=== PATIENT | female | born 2000 | race Caucasian/White ===

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

== ENCOUNTER 2021-06-01 07:06 | Emergency (ER) | payer BC ==
[~2021-06-01] VITALS: Ht 167.6 cm; Wt 120.2 kg
[2021-06-01] MEDS ORDERED: NEXPLANON68 M2 SQ (08:00)
[2021-06-01] MEDS ORDERED: ABILIFY10 MG PO (08:01)
[2021-06-01 10:14] LABS: BASO % 0.6 % (0.0-1.0); EOS % 0.6 % (1.0-4.0); HEMATOCRIT 38.1 % (37.0-47.0); LYMPH # 1.5 10*3/uL (1.3-4.4); LYMPH % 46.1 % (27.0-41.0); MEAN CELL VOLUME 80.2 fl (81.0-99.0); MEAN CORPUSCULAR HGB 26.3 pg (27.0-31.0); MEAN CORPUSCULAR HGB CONC 32.8 g/dl (33.0-37.0); MONO # 0.3 10*3/uL (0.1-1.0); NEUT # 1.4 10*3/uL (2.3-7.9); NEUT % 42.7 % (47.0-73.0); PLATELET COUNT AUTOMATED 211 10*3/uL (130-400); RED BLOOD COUNT 4.75 10*6/uL (4.10-5.10); RED CELL DISTRI WIDTH 13.7 % (0-14.5); WHITE BLOOD COUNT 3.2 10*3/uL (4.8-10.8)
[2021-06-01 10:32] LABS: ALBUMIN 3.4 gm/dl (3.1-4.5); ALKALINE PHOSPHATASE 60 U/L (45-117); BUN 7 mg/dl (7-24); CHLORIDE 110 mmol/L (98-107); CREATININE 0.84 mg/dL (0.55-1.02); LIPASE 53 U/L (73-393); POTASSIUM 3.7 mmol/L (3.5-5.1); SGOT/AST 16 IU/L (3-35); SGPT/ALT 22 U/L (12-78); SODIUM 141 mmol/L (136-145); TOTAL PROTEIN 7.2 gm/dL (6.4-8.2)
[2021-06-01 10:40] LABS: BETA-HCG, QUANT < 1.0 mIU/mL (1-3)
== END 2021-06-01 14:19 | disposition home or self-care (01) ==
LOC: ED 07:06
PROVIDERS: Emergency Medicine
DX: U07.1 COVID-19 (principal); J12.82 Pneumonia due to coronavirus disease 2019; Z79.899 Other long term (current) drug therapy; Z96.22 Myringotomy tube(s) status

== ENCOUNTER 2022-02-28 08:45 | Emergency (ER) | payer SELFPAY ==
[~2022-02-28] VITALS: Ht 167.6 cm; Wt 123.4 kg
[~2022-02-28 08:45] MED LIST changes: +ABILIFY10 MG PO; +NEXPLANON68 M2 SQ
[2022-02-28 11:15] LABS: BASO # 0.1 10*3/uL (0.0-0.1); BASO % 0.6 % (0.0-1.0); EOS # 0.1 10*3/uL (0.0-0.4); EOS % 1.3 % (1.0-4.0); HEMATOCRIT 39.2 % (37.0-47.0); LYMPH # 2.1 10*3/uL (1.3-4.4); LYMPH % 24.8 % (27.0-41.0); MEAN CORPUSCULAR HGB 26.6 pg (27.0-31.0); MEAN CORPUSCULAR HGB CONC 32.4 g/dl (33.0-37.0); MEAN PLATELET VOLUME 11.1 fl (9.6-12.3); MONO # 0.5 10*3/uL (0.1-1.0); MONO % 6.2 % (3.0-9.0); NEUT # 5.5 10*3/uL (2.3-7.9); NEUT % 66.7 % (47.0-73.0); PLATELET COUNT AUTOMATED 257 10*3/uL (130-400); RED BLOOD COUNT 4.78 10*6/uL (4.10-5.10); RED CELL DISTRI WIDTH 13.8 % (0-14.5); WHITE BLOOD COUNT 8.3 10*3/uL (4.8-10.8)
[2022-02-28 11:23] LABS: BILIRUBIN Negative (Negative); BLOOD Negative (Negative); CLARITY Clear (Clear); COLOR Yellow (Yellow); GLUCOSE Negative (Negative); KETONE Negative (Negative); LEUKO ESTERASE Negative (Negative); NITRITE Negative (Negative); UROBILINOGEN 0.2 E.U./dl (0.0-1.0)
[2022-02-28 11:33] LABS: ALKALINE PHOSPHATASE 65 U/L (45-117); BUN 9 mg/dl (7-24); CHLORIDE 110 mmol/L (98-107); CREATININE 0.96 mg/dL (0.55-1.02); LIPASE 72 U/L (73-393); POTASSIUM 4.1 mmol/L (3.5-5.1); SGOT/AST 13 IU/L (3-35); SGPT/ALT 26 U/L (12-78); SODIUM 139 mmol/L (136-145); TOTAL PROTEIN 7.5 gm/dL (6.4-8.2)
[2022-02-28 11:36] LABS: B-hCG (QUALITATIVE) NEGATIVE (NEGATIVE)
== END 2022-02-28 13:12 | disposition home or self-care (01) ==
LOC: ED 08:45
PROVIDERS: Emergency Medicine
DX: K80.80 Other cholelithiasis without obstruction (principal); K80.50 Calculus of bile duct without cholangitis or cholecystitis without obstruction; Z79.899 Other long term (current) drug therapy

== ENCOUNTER 2022-03-28 15:27 | Emergency (ER) | payer SELFPAY ==
[~2022-03-28] VITALS: Ht 167.6 cm; Wt 131.5 kg
[2022-03-28] MEDS ORDERED: IBU600 M1 PO (17:38)
[2022-03-28] MEDS ORDERED: LIDODERM1 EACH TD (17:38)
[2022-03-28] MEDS ORDERED: TYLENOL EXTRA500 MG PO (17:38)
== END 2022-03-28 18:00 | disposition home or self-care (01) ==
LOC: ED 15:27
DX: S50.12XA Contusion of left forearm, initial encounter (principal); Z79.899 Other long term (current) drug therapy; W18.39XA Other fall on same level, initial encounter; Y93.89 Activity, other specified; Y92.89 Other specified places as the place of occurrence of the external cause; Y99.8 Other external cause status

== ENCOUNTER 2022-07-02 15:59 | Emergency (ER) | payer OTHER ==
[~2022-07-02 15:59] MED LIST changes: +IBU600 M1 PO; +LIDODERM1 EACH TD; +TYLENOL EXTRA500 MG PO
[2022-07-02] MEDS ORDERED: PROVENTIL HFA6.7 GM PO (16:17)
== END 2022-07-02 16:40 | disposition home or self-care (01) ==
LOC: ED 15:59
DX: U07.1 COVID-19 (principal); Z98.890 Other specified postprocedural states

== ENCOUNTER → 2022-07-19 | Outpatient (CLI) | payer OTHER ==
[~2022-07-19] MED LIST changes: +PROVENTIL HFA6.7 GM PO
== END | disposition home or self-care (01) ==
LOC: LAB 13:43
PROVIDERS: ATTEND Surgery
DX: Z01.812 Encounter for preprocedural laboratory examination (principal)

== ENCOUNTER 2022-08-11 02:03 | Emergency (ER) | payer OTHER ==
[2022-08-11 02:38] LABS: BASO % 0.5 % (0.0-1.0); EOS # 0.2 10*3/uL (0.0-0.4); EOS % 1.9 % (1.0-4.0); HEMATOCRIT 37.4 % (37.0-47.0); LYMPH # 2.8 10*3/uL (1.3-4.4); LYMPH % 34.7 % (27.0-41.0); MEAN CELL VOLUME 83.5 fl (81.0-99.0); MEAN CORPUSCULAR HGB 27.2 pg (27.0-31.0); MEAN CORPUSCULAR HGB CONC 32.6 g/dl (33.0-37.0); MEAN PLATELET VOLUME 11.5 fl (9.6-12.3); MONO # 0.6 10*3/uL (0.1-1.0); MONO % 7.3 % (3.0-9.0); NEUT # 4.5 10*3/uL (2.3-7.9); NEUT % 55.4 % (47.0-73.0); PLATELET COUNT AUTOMATED 207 10*3/uL (130-400); RED BLOOD COUNT 4.48 10*6/uL (4.10-5.10); RED CELL DISTRI WIDTH 14.2 % (0-14.5); WHITE BLOOD COUNT 8.1 10*3/uL (4.8-10.8)
[2022-08-11 02:54] LABS: ALKALINE PHOSPHATASE 54 U/L (46-116); BUN 10 mg/dl (9-23); CHLORIDE 109 mmol/L (98-107); LIPASE 33 U/L (12-53); POTASSIUM 3.8 mmol/L (3.4-5.1); SGPT/ALT 19 U/L (10-49); TOTAL PROTEIN 6.5 gm/dL (6.0-8.0)
[2022-08-11] MEDS ORDERED: METRONIDAZOLE500 M1 PO (03:49)
[2022-08-11] MEDS ORDERED: CIPRO500 MG PO (03:49)
== END 2022-08-11 04:15 | disposition home or self-care (01) ==
LOC: ED 02:03
PROVIDERS: Internal Medicine
DX: K80.10 Calculus of gallbladder with chronic cholecystitis without obstruction (principal); Z79.899 Other long term (current) drug therapy

== ENCOUNTER 2022-08-14 16:52 | Emergency (ER) | payer OTHER ==
[~2022-08-14] VITALS: Ht 167.6 cm; Wt 127.0 kg
[~2022-08-14 16:52] MED LIST changes: +CIPRO500 MG PO; +METRONIDAZOLE500 M1 PO
[2022-08-14] MEDS ORDERED: ATARAX,VISTARIL10 MG PO (17:31)
[2022-08-14 17:35] LABS: BASO % 0.5 % (0.0-1.0); EOS # 0.1 10*3/uL (0.0-0.4); EOS % 1.8 % (1.0-4.0); HEMATOCRIT 38.8 % (37.0-47.0); LYMPH # 1.8 10*3/uL (1.3-4.4); LYMPH % 29.6 % (27.0-41.0); MEAN CELL VOLUME 81.7 fl (81.0-99.0); MEAN CORPUSCULAR HGB 26.9 pg (27.0-31.0); MONO # 0.7 10*3/uL (0.1-1.0); MONO % 11.7 % (3.0-9.0); NEUT # 3.4 10*3/uL (2.3-7.9); NEUT % 56.1 % (47.0-73.0); PLATELET COUNT AUTOMATED 202 10*3/uL (130-400); RED BLOOD COUNT 4.75 10*6/uL (4.10-5.10); RED CELL DISTRI WIDTH 14.1 % (0-14.5); WHITE BLOOD COUNT 6.1 10*3/uL (4.8-10.8)
[2022-08-14 17:50] LABS: ALKALINE PHOSPHATASE 58 U/L (46-116); BUN 8 mg/dl (9-23); CHLORIDE 106 mmol/L (98-107); LIPASE 28 U/L (12-53); POTASSIUM 3.9 mmol/L (3.4-5.1); SGPT/ALT 49 U/L (10-49); TOTAL PROTEIN 7.1 gm/dL (6.0-8.0)
[2022-08-14] MEDS ORDERED: COMPAZINE10 M1 PO (18:02)
[2022-08-14] MEDS ORDERED: Percocet 325 MG1 TAB PO (18:02)
== END 2022-08-14 18:07 | disposition home or self-care (01) ==
LOC: ED 16:52
PROVIDERS: Emergency Medicine
DX: K80.50 Calculus of bile duct without cholangitis or cholecystitis without obstruction (principal); M25.511 Pain in right shoulder; Z98.890 Other specified postprocedural states

== ENCOUNTER → 2022-08-25 | Day surgery (SDC) | payer OTHER ==
[2022-08-23 13:15] VITALS: BP 150/84
[~2022-08-25] VITALS: Ht 167.6 cm; Wt 127.0 kg
[2022-08-25] VITALS (8 sets, daily range): BP systolic 112–142; BP diastolic 43–82
[~2022-08-25] MED LIST changes: +ATARAX,VISTARIL10 MG PO; +COLACE100 MG PO; +COMPAZINE10 M1 PO; +HYDROCODONE-AC1 EAC1 PO; +ONDANSETRON HYDR4 M1 PO; +Percocet 325 MG1 TAB PO
== END | disposition home or self-care (01) ==
LOC: SDC 08-23 13:15
PROVIDERS: ATTEND Surgery
DX: K80.10 Calculus of gallbladder with chronic cholecystitis without obstruction (principal); F41.9 Anxiety disorder, unspecified; F31.9 Bipolar disorder, unspecified; G43.909 Migraine, unspecified, not intractable, without status migrainosus; F43.10 Post-traumatic stress disorder, unspecified; Z98.890 Other specified postprocedural states; F17.210 Nicotine dependence, cigarettes, uncomplicated

== ENCOUNTER → 2022-11-02 | Outpatient (CLI) | payer OTHER | END | disposition home or self-care (01) | LOC: US 11:30 | PROVIDERS: ATTEND Internal Medicine Nephrology | DX: R60.0 Localized edema (principal) ==

== ENCOUNTER 2023-01-28 14:51 | Emergency (ER) | payer SELFPAY ==
[~2023-01-28] VITALS: Ht 167.6 cm; Wt 127.0 kg
[2023-01-28] MEDS ORDERED: ZITHROMAX250 MG PO (18:37)
[2023-01-28] MEDS ORDERED: ONDANSETRON4 MG SL (18:37)
== END 2023-01-28 18:45 | disposition home or self-care (01) ==
LOC: ED 14:51
DX: J06.9 Acute upper respiratory infection, unspecified (principal); F41.9 Anxiety disorder, unspecified; F31.9 Bipolar disorder, unspecified; G43.909 Migraine, unspecified, not intractable, without status migrainosus; Z98.890 Other specified postprocedural states; Z20.822 Contact with and (suspected) exposure to COVID-19

== ENCOUNTER 2023-02-01 07:20 | Emergency (ER) | payer SELFPAY ==
[~2023-02-01] VITALS: Ht 167.6 cm; Wt 127.0 kg
[~2023-02-01 07:20] MED LIST changes: +ONDANSETRON4 MG SL; +ZITHROMAX250 MG PO
[2023-02-01] MEDS ORDERED: AMOX-CLAV 875-1 EACH PO (07:35)
== END 2023-02-01 08:00 | disposition home or self-care (01) ==
LOC: ED 07:20
DX: J02.9 Acute pharyngitis, unspecified (principal); F41.9 Anxiety disorder, unspecified; F31.9 Bipolar disorder, unspecified; G43.909 Migraine, unspecified, not intractable, without status migrainosus

== ENCOUNTER 2023-05-09 15:32 | Emergency (ER) | payer BC ==
[~2023-05-09] VITALS: Ht 167.6 cm; Wt 127.0 kg
[~2023-05-09 15:32] MED LIST changes: +AMOX-CLAV 875-1 EACH PO
[2023-05-09] MEDS ORDERED: TAMIFLU 75MG CA75 MG PO (19:45)
== END 2023-05-09 20:12 | disposition home or self-care (01) ==
LOC: ED 15:32
DX: J10.1 Influenza due to other identified influenza virus with other respiratory manifestations (principal); F41.9 Anxiety disorder, unspecified; F31.9 Bipolar disorder, unspecified; G43.909 Migraine, unspecified, not intractable, without status migrainosus; Z98.890 Other specified postprocedural states; Z20.822 Contact with and (suspected) exposure to COVID-19

== ENCOUNTER 2023-08-02 20:22 | Emergency (ER) | payer BC ==
[~2023-08-02] VITALS: Ht 167.6 cm; Wt 129.7 kg
[~2023-08-02 20:22] MED LIST changes: +TAMIFLU 75MG CA75 MG PO
[2023-08-02] MEDS ORDERED: QSYMIA 3.75 MG1 EACH PO (20:32)
[2023-08-02 21:29] LABS: BASO # 0.1 10*3/uL (0.0-0.1); BASO % 0.6 % (0.0-1.0); EOS # 0.1 10*3/uL (0.0-0.4); EOS % 1.4 % (1.0-4.0); HEMATOCRIT 40.3 % (37.0-47.0); LYMPH # 2.7 10*3/uL (1.3-4.4); LYMPH % 32.7 % (27.0-41.0); MEAN CELL VOLUME 83.1 fl (81.0-99.0); MEAN CORPUSCULAR HGB CONC 32.5 g/dl (33.0-37.0); MEAN PLATELET VOLUME 10.9 fl (9.6-12.3); MONO # 0.6 10*3/uL (0.1-1.0); MONO % 7.5 % (3.0-9.0); NEUT # 4.8 10*3/uL (2.3-7.9); NEUT % 57.6 % (47.0-73.0); PLATELET COUNT AUTOMATED 247 10*3/uL (130-400); RED BLOOD COUNT 4.85 10*6/uL (4.10-5.10); RED CELL DISTRI WIDTH 14.1 % (0-14.5); WHITE BLOOD COUNT 8.4 10*3/uL (4.8-10.8)
[2023-08-02 21:29] LABS: BILIRUBIN Negative (Negative); BLOOD 3+ (Negative); CLARITY Cloudy (Clear); COLOR Orange (Yellow); GLUCOSE Negative (Negative); KETONE Trace (Negative); LEUKO ESTERASE Negative (Negative); NITRITE Negative (Negative); PH 5.5 (4.5-8.0); SPECIFIC GRAVITY 1.025 (1.001-1.030); UROBILINOGEN 0.2 E.U./dl (0.0-1.0)
[2023-08-02 21:36] LABS: BACTERIA 2+; EPITHELIAL CELLS 51-100; MUCOUS 2+; RBC TNTC rbc/hpf (0-2)
[2023-08-02 21:49] LABS: ALKALINE PHOSPHATASE 54 U/L (46-116); BUN 8 mg/dl (9-23); CHLORIDE 105 mmol/L (98-107); LIPASE 26 U/L (12-53); POTASSIUM 3.5 mmol/L (3.4-5.1); SGPT/ALT 34 U/L (5-49); TOTAL PROTEIN 7.4 gm/dL (6.0-8.0)
[2023-08-02] MEDS ORDERED: Dicyclomine Hydrochloride 20 MG/10 ML OSYR PO STA (22:00)
[2023-08-02] MEDS ORDERED: hydrOXYzine pamoate 25 MG CAP PO ONE (22:00)
[2023-08-02] MEDS ORDERED: Lidocaine Hydrochloride 15 ML UDC PO STA (22:00)
[2023-08-02] MEDS ORDERED: MG-AL HYDROXIDE/SIMETICONE 30 ML UDC PO STA (22:00)
[2023-08-02] MEDS ORDERED: VISTARIL25 MG PO (23:19)
== END 2023-08-02 23:34 | disposition home or self-care (01) ==
LOC: ED 20:22
PROVIDERS: Internal Medicine
DX: F41.9 Anxiety disorder, unspecified (principal); K21.9 Gastro-esophageal reflux disease without esophagitis; Z79.899 Other long term (current) drug therapy; Z96.22 Myringotomy tube(s) status

== ENCOUNTER 2023-10-16 23:59 | Emergency (ER) | payer BC ==
[~2023-10-16] VITALS: Ht 167.6 cm; Wt 127.0 kg
[~2023-10-16 23:59] MED LIST changes: +QSYMIA 3.75 MG1 EACH PO; +VISTARIL25 MG PO
[2023-10-17] MEDS ORDERED: methylPREDNISolone sod succ 125 MG VIAL IM ONE (01:25)
== END 2023-10-17 01:40 | disposition home or self-care (01) ==
LOC: ED 23:59
DX: J02.9 Acute pharyngitis, unspecified (principal); R53.83 Other fatigue; Z79.899 Other long term (current) drug therapy; Z96.22 Myringotomy tube(s) status

== ENCOUNTER → 2024-01-11 | Outpatient (CLI) | payer BC ==
[2024-01-12 05:07] LABS: HEPATITIS B SURFACE AG Negative (Negative)
== END | disposition home or self-care (01) ==
LOC: LAB 10:01
PROVIDERS: ATTEND Internal Medicine Nephrology
DX: Z20.2 Contact with and (suspected) exposure to infections with a predominantly sexual mode of transmission (principal)

== ENCOUNTER 2024-02-23 12:07 | Emergency (ER) | payer BC ==
[~2024-02-23] VITALS: Ht 167.6 cm; Wt 122.5 kg
[2024-02-23] MEDS ORDERED: EFFEXOR XR75 M1 PO (12:20)
[2024-02-23] MEDS ORDERED: [UNRECOGNIZED DRUG - OTHER] IM (12:21)
[2024-02-23] MEDS ORDERED: IBU800 M2 PO (12:32)
[2024-02-23] MEDS ORDERED: AVPAK AZITHROM250 M1 PO (12:32)
[2024-02-23] MEDS ORDERED: REGLAN10 M1 PO (12:32)
== END 2024-02-23 12:43 | disposition home or self-care (01) ==
LOC: ED 12:07
DX: J32.9 Chronic sinusitis, unspecified (principal); R51.9 Headache, unspecified; Z79.899 Other long term (current) drug therapy; Z96.22 Myringotomy tube(s) status

== ENCOUNTER 2024-02-28 22:42 | Emergency (ER) | payer BC ==
[~2024-02-28] VITALS: Ht 167.6 cm; Wt 122.5 kg
[~2024-02-28 22:42] MED LIST changes: +AVPAK AZITHROM250 M1 PO; +EFFEXOR XR75 M1 PO; +IBU800 M2 PO; +REGLAN10 M1 PO; +[UNRECOGNIZED DRUG - OTHER] IM
== END 2024-02-29 00:01 | disposition left against medical advice (07) ==
LOC: ED 22:42
DX: R05.9 Cough, unspecified (principal); J02.9 Acute pharyngitis, unspecified; F41.9 Anxiety disorder, unspecified; F31.9 Bipolar disorder, unspecified; G43.909 Migraine, unspecified, not intractable, without status migrainosus; Z90.49 Acquired absence of other specified parts of digestive tract; Z98.890 Other specified postprocedural states; Z53.29 Procedure and treatment not carried out because of patient's decision for other reasons

== ENCOUNTER 2024-08-10 09:00 | Emergency (ER) | payer BC ==
[~2024-08-10] VITALS: Ht 167.6 cm; Wt 122.5 kg
[2024-08-10] MEDS ORDERED: LAMOTRIGINE100 MG PO (09:12)
[2024-08-10] MEDS ORDERED: MIXED AMPHETAMI15 MG PO (09:12)
[2024-08-10] MEDS ORDERED: VIBRAMYCIN100 MG PO (09:43)
== END 2024-08-10 09:45 | disposition home or self-care (01) ==
LOC: ED 09:00
DX: L03.116 Cellulitis of left lower limb (principal); Z79.899 Other long term (current) drug therapy; Z90.49 Acquired absence of other specified parts of digestive tract

== ENCOUNTER 2024-09-06 06:32 | Emergency (ER) | payer SELFPAY ==
[~2024-09-06] VITALS: Ht 167.6 cm; Wt 122.5 kg
[~2024-09-06 06:32] MED LIST changes: +LAMOTRIGINE100 MG PO; +MIXED AMPHETAMI15 MG PO; +VIBRAMYCIN100 MG PO
[2024-09-06] MEDS ORDERED: Ondansetron Hydrochloride 4 MG TAB SL ONE (06:50)
[2024-09-06] MEDS ORDERED: ABILIFY AS960 MG/3.2 IM (06:51)
[2024-09-06] MEDS ORDERED: DOXEPIN HCL25 MG PO (06:52)
[2024-09-06] MEDS ORDERED: AMOX-CLAV 875-1 EACH PO (08:35)
== END 2024-09-06 07:56 | disposition home or self-care (01) ==
LOC: ED 06:32
DX: J02.0 Streptococcal pharyngitis (principal); Z20.822 Contact with and (suspected) exposure to COVID-19; Z79.899 Other long term (current) drug therapy; Z90.49 Acquired absence of other specified parts of digestive tract

== ENCOUNTER 2024-09-13 23:22 | Emergency (ER) | payer SELFPAY ==
[~2024-09-13] VITALS: Ht 167.6 cm; Wt 122.5 kg
[~2024-09-13 23:22] MED LIST changes: +ABILIFY AS960 MG/3.2 IM; +DOXEPIN HCL25 MG PO
[2024-09-14] MEDS ORDERED: LORADAMED10 MG PO (02:03)
[2024-09-14] MEDS ORDERED: OMNICEF300 MG PO (02:03)
[2024-09-14] MEDS ORDERED: CEFDINIR 300 MG CAP PO ONE (02:05)
[2024-09-14] MEDS ORDERED: LORATADINE 10 MG TAB PO ONE (02:10)
== END 2024-09-14 02:11 | disposition home or self-care (01) ==
LOC: ED 23:22
DX: H66.90 Otitis media, unspecified, unspecified ear (principal); J32.9 Chronic sinusitis, unspecified; J02.9 Acute pharyngitis, unspecified; Z79.899 Other long term (current) drug therapy; Z90.49 Acquired absence of other specified parts of digestive tract

== ENCOUNTER 2024-11-14 15:38 | Emergency (ER) | payer SELFPAY ==
[~2024-11-14] VITALS: Ht 167.6 cm; Wt 122.5 kg
[~2024-11-14 15:38] MED LIST changes: +LORADAMED10 MG PO; +OMNICEF300 MG PO
== END 2024-11-14 18:39 | disposition home or self-care (01) ==
LOC: ED 15:38
DX: S93.402A Sprain of unspecified ligament of left ankle, initial encounter (principal); F31.9 Bipolar disorder, unspecified; G43.909 Migraine, unspecified, not intractable, without status migrainosus; Z79.899 Other long term (current) drug therapy; Z90.49 Acquired absence of other specified parts of digestive tract; W18.39XA Other fall on same level, initial encounter; Y93.89 Activity, other specified; Y92.89 Other specified places as the place of occurrence of the external cause; Y99.8 Other external cause status

== ENCOUNTER → 2025-02-26 | Outpatient (CLI) | payer BC ==
[2025-02-26 09:49] LABS: BASO # 0.0 10*3/uL (0.0-0.1); BASO % 0.5 % (0.0-1.0); EOS # 0.0 10*3/uL (0.0-0.4); EOS % 0.0 % (1.0-4.0); MEAN CELL VOLUME 84.4 fl (81.0-99.0); MEAN CORPUSCULAR HGB 27.4 pg (27.0-31.0); MEAN PLATELET VOLUME 10.5 fl (9.6-12.3); MONO # 0.5 10*3/uL (0.1-1.0); MONO % 6.4 % (3.0-9.0); NEUT # 5.1 10*3/uL (2.3-7.9); NEUT % 61.9 % (47.0-73.0); NUCLEATED RED BLOOD CELL 0.0 % (0.0-0.0); NUCLEATED RED BLOOD CELL 0.0 10*3/uL (0.0-0.0); PLATELET COUNT AUTOMATED 262 10*3/uL (130-400); RED CELL DISTRI WIDTH 12.7 % (0-14.5)
[2025-02-26 10:13] LABS: BUN 8 mg/dl (9-23); FREE T4 1.20 ng/dl (0.89-1.76); LDL CHOLESTEROL 107 mg/dL (9-159); SGPT/ALT 17 U/L (5-49)
[2025-02-26 10:37] LABS: VITAMIN D, 25-HYDROXY 27.7 ng/mL (30-100)
== END | disposition home or self-care (01) ==
LOC: LAB 09:25
PROVIDERS: ATTEND Internal Medicine Nephrology
DX: R73.03 Prediabetes (principal); F31.9 Bipolar disorder, unspecified; F41.9 Anxiety disorder, unspecified

== ENCOUNTER 2025-04-06 19:13 | Emergency (ER) | payer BC ==
[~2025-04-06] VITALS: Ht 167.6 cm; Wt 122.5 kg
[2025-04-06] MEDS ORDERED: METHOCARBAMOL 500 MG TAB PO ONE (20:05)
[2025-04-06] MEDS ORDERED: METHOCARBAMOL750 M1 PO (20:08)
[2025-04-06] MEDS ORDERED: NAPROXEN250 MG PO (20:08)
== END 2025-04-06 20:30 | disposition home or self-care (01) ==
LOC: ED 19:13
DX: S46.911A Strain of unspecified muscle, fascia and tendon at shoulder and upper arm level, right arm, initial encounter (principal); F41.9 Anxiety disorder, unspecified; F31.9 Bipolar disorder, unspecified; G43.909 Migraine, unspecified, not intractable, without status migrainosus; Z90.49 Acquired absence of other specified parts of digestive tract; X58.XXXA Exposure to other specified factors, initial encounter; Y93.89 Activity, other specified; Y92.89 Other specified places as the place of occurrence of the external cause; Y99.8 Other external cause status